=== PATIENT | male | born 1970 | race Caucasian/White ===

== ENCOUNTER 2022-04-01 16:29 | Inpatient (IN) | payer SELFPAY ==
[~2022-04-01] VITALS: Ht 188 cm; Wt 131.6 kg
[2022-04-01 19:41] LABS: BASO # 0.1 K/mm3 (0.0-0.2); BASO % 0.6 % (0.0-2.0); EOS # 0.2 K/mm3 (0.0-0.7); EOS % 2.8 % (0.0-4.0); GRAN % 75.5 % (42.2-75.2); HEMATOCRIT 40.4 % (42.0-52.0); HEMOGLOBIN 12.9 g/dl (13.5-18.0); LYMPH # 1.1 K/mm3 (1.2-3.4); LYMPH % 14.2 % (20.0-51.0); MEAN CELL VOLUME 90 fl (80.0-100.0); MEAN CORPUSCULAR HEMOGLOBIN 29 pg (27-31); MEAN CORPUSCULAR HGB CONC 32 g/dl (33.0-37.0); MEAN PLATELET VOLUME 8.5 fl (7.4-10.4); MONO # 0.5 K/mm3 (0.1-0.6); MONO % 6.5 % (1.7-9.3); PLATELET COUNT 367 K/mm3 (130-400); REDCELL DISTRIBUTION WIDTH-CV 13.5 % (11.5-14.5)
[2022-04-01 19:59] LABS: ALBUMIN 3.3 gm/dL (3.5-5.0); BILIRUBIN,TOTAL 0.3 mg/dL (0.2-1.2); C-REACTIVE PROTEIN 11.07 mg/dL (0.00-0.50); CALCIUM 9.3 mg/dL (8.4-10.2); CREATININE, serum 1.16 mg/dL (0.72-1.25); POTASSIUM 4.2 mmol/L (3.5-4.5); TOTAL PROTEIN 8.2 gm/dL (6.2-8.1)
[2022-04-01 20:05] LABS: ERYTHROCYTE SEDIMENTATION RATE 107 mm/hr (0-15)
[2022-04-01] MEDS ORDERED: PRINZIDE 25 MG-1 TAB PO (22:43)
[2022-04-01] MEDS ORDERED: FLOMAX 0.40.4 MG/CAP PO (22:43)
[2022-04-01] MEDS ORDERED: ADVIL200 MG PO (22:44)
[2022-04-02] VITALS (7 sets, daily range): BP systolic 110–128; BP diastolic 58–72; PULSE 72–89; TEMP 97.8–98.6
[2022-04-02 00:29] LABS: SQUAMOUS EPITHELIAL 0-2 /hpf (0-10); URINE BACTERIA None Seen /hpf (NONE SEEN); URINE RBC 0-2 /hpf (0-2)
[2022-04-02 00:31] LABS: URINE APPEARANCE Clear (CLEAR/HAZY); URINE BLOOD Negative (NEGATIVE); URINE COLOR Yellow (YELLOW); URINE GLUCOSE Negative (NEGATIVE); URINE KETONE Negative (NEGATIVE); URINE NITRATE Negative (NEGATIVE); URINE PROTEIN(semi-quant) 2+ (NEGATIVE); URINE UROBILINOGEN 0.2 E.U/dL (0.2-1.0)
[2022-04-02 00:38] LABS: COLLECTION METHOD CLEAN CATCH
--- NOTE | 2022-04-02 02:30 | NUR ---
PT BROUGHT TO ROOM FROM ED. A&OX4 RESTING IN BED. VSS AND TELE IN PLACE. ADMISSION ASSESSMENT COMPLETE. PT DENIES PN. WOUNDS PRESENT TO BILATERAL FEET W DRAINAGE AND FOUL SMELL. 4TH TOE ON BOTH FEET AMPUTATED. PT DENIES PN. NS AND VANC INFUSING IN RT AC. NO NEEDS AT THIS TIME. CALL LIGHT WITHIN REACH.
--- NOTE | 2022-04-02 04:39 | NUR ---
51 yo male admitted for further care and management of sepsis likely secondary to a bilateral lower extremity skin/soft tissue infection with concern for possible osteomyelitis (past history of MRSA). ht 187.96 cm wt 127.3 kg SCr 1.16 with estimated CrCl >60 ml/min half life 14.1 hours Plan: Will give an initial loading dose of vancomycin 2500 mg x1 (19.6 mg/kg); followed by a maintenance regimen of vancomycin 1750 mg q12h to target a goal trough of 15-20 mcg/ml. Will folllow patient's renal function, micro data, and vancomycin levels as indicated to assess for any necessary changes to regimen. Thank you for this dosing consult.
[2022-04-02 07:15] LABS: BASO % 0.8 % (0.0-2.0); EOS # 0.2 K/mm3 (0.0-0.7); EOS % 3.3 % (0.0-4.0); GRAN # 3.3 K/mm3 (1.4-6.5); GRAN % 64.4 % (42.2-75.2); HEMOGLOBIN 12.1 g/dl (13.5-18.0); LYMPH # 1.2 K/mm3 (1.2-3.4); LYMPH % 23.7 % (20.0-51.0); MEAN CELL VOLUME 90 fl (80.0-100.0); MEAN CORPUSCULAR HEMOGLOBIN 30 pg (27-31); MEAN CORPUSCULAR HGB CONC 33 g/dl (33.0-37.0); MEAN PLATELET VOLUME 8.7 fl (7.4-10.4); MONO # 0.4 K/mm3 (0.1-0.6); MONO % 7.4 % (1.7-9.3); PLATELET COUNT 326 K/mm3 (130-400); REDCELL DISTRIBUTION WIDTH-CV 13.6 % (11.5-14.5)
[2022-04-02 07:23] LABS: ALBUMIN 2.7 gm/dL (3.5-5.0); BILIRUBIN,TOTAL 0.2 mg/dL (0.2-1.2); CALCIUM 8.4 mg/dL (8.4-10.2); CREATININE, serum 1.03 mg/dL (0.72-1.25); POTASSIUM 3.7 mmol/L (3.5-4.5); TOTAL PROTEIN 6.6 gm/dL (6.2-8.1)
--- NOTE | 2022-04-02 08:58 | NUR ---
PT IN CHAIR UPON ASSESSMENT. NO COMPLAINTS AT THIS TIME. PT EDUCATED ON NPO STATUS FOR NOW, CONFIRMED WITH PROVIDER IN CASE OF SURGICAL INTERVENTION FOR WOUNDS TODAY. PT UP AD CYNTHIA WITH PT THIS MORNING
--- NOTE | 2022-04-02 09:03 | NUR ---
Initial visit from doorway, patient in Isolation. Relay Record Clerk wished patient well and offered God's blessings. Patient appeared somewhat discouraged with being hospitalized and spoke only a few words. He did thank Relay Record Clerk for stopping.
[2022-04-02 11:04] LABS: PARTIAL THROMBOPLASTIN TIME 35.6 SECONDS (26.0-37.0)
--- NOTE | 2022-04-02 21:30 | NUR ---
PT IN BED. AWAKENS TO NAME. IS ORIENTED X4. PT REPORTS HIS FOOT DRESSINGS HAVEN'T BEEN CHANGED, REPORTS HE CLEANS HIS WOUNDS TID AT HOME. REMOVED DRSGS AT THIS TIME. CLEANSED OPEN ULCERS TO RT AND LEFT FEET. PLACED SALINE SOAKED GAUZE TO THE THREE ULCERS ON RT FOOT AND COVERED WITH TELFA AND KERLIX. CLEANSED LEFT FOOT ULCER AND PLACED TELFA PAD AND SECURED WITH KERLIX. PTS RT FOOT ULCERS ARE VERY ODIFEROUS, DRSGS WERE SATURATED PRIOR TO CHANGING. IV ANTIBIOTICS INFUSING TO RAC SITE WITHOUT REDNESS OR SWELLING. HAS BLE EDEMA WITH DISCOLORATION. DENIES PAIN AT THIS TIME.
[2022-04-03] VITALS (7 sets, daily range): BP systolic 112–130; BP diastolic 61–73; PULSE 69–83; TEMP 97.6–98.4
--- NOTE | 2022-04-03 04:00 | NUR ---
PT NOT SCORING ON DETOX PROTOCOL. INT TO RAC WITHOUT REDNESS OR SWELLING.
[2022-04-03 06:16] LABS: BASO % 0.6 % (0.0-2.0); EOS # 0.2 K/mm3 (0.0-0.7); EOS % 2.7 % (0.0-4.0); GRAN # 4.4 K/mm3 (1.4-6.5); GRAN % 69.9 % (42.2-75.2); HEMOGLOBIN 11.8 g/dl (13.5-18.0); LYMPH # 1.3 K/mm3 (1.2-3.4); LYMPH % 20.4 % (20.0-51.0); MEAN CELL VOLUME 93 fl (80.0-100.0); MEAN CORPUSCULAR HEMOGLOBIN 30 pg (27-31); MEAN CORPUSCULAR HGB CONC 32 g/dl (33.0-37.0); MEAN PLATELET VOLUME 8.7 fl (7.4-10.4); MONO # 0.4 K/mm3 (0.1-0.6); MONO % 5.9 % (1.7-9.3); PLATELET COUNT 317 K/mm3 (130-400); RED BLOOD COUNT 3.97 M/mm3 (4.20-5.60); REDCELL DISTRIBUTION WIDTH-CV 13.7 % (11.5-14.5)
[2022-04-03 06:38] LABS: CALCIUM 8.7 mg/dL (8.4-10.2); CREATININE, serum 0.98 mg/dL (0.72-1.25); MAGNESIUM 1.9 mg/dL (1.6-2.6); POTASSIUM 3.6 mmol/L (3.5-4.5)
[2022-04-03 06:48] LABS: HEMATOCRIT 36.8 % (42.0-52.0)
--- NOTE | 2022-04-03 09:17 | NUR ---
PT EATING BREAKFAST UPON ASSESSMENT. STATES LAST BM YESTERDAY 04/02. BILAT FEET DRESSINGS CLEAN, DRY AND INTACT AT THIS TIME. PT STATES HE WILL SHOWER LATER THIS MORNING, PLAN TO CHANGE DRESSINGS AFTER SHOWER AND CLEANSING. TELE IN PLACE. NO COMPLAINTS AT THIS TIME.
--- NOTE | 2022-04-03 10:09 | NUR ---
SPOKE VIA TELEPHONE CALL TO DR. MONIQUE WITH [facility] REGARDING PLAN OF CARE FOR THIS PT. PROVIDER EXPRESSED PLAN TO START ORAL DOXYCYCLINE 100MG BID X10 DAYS AND KEFLEX 500MG Q6H X10 DAYS FOR OUTPT ANTIBIOTIC REGIMEN. WILL COMMUNICATE PLANS WITH HOSPITALIST PROVIDER TO PROGRESS CARE TO POTENTIAL DISCHARGE IF DEEMED APPROPRIATE TODAY.
[2022-04-03] MEDS ORDERED: CEPHALEXIN500 M1 PO (11:45)
[2022-04-03] MEDS ORDERED: LIPITOR20 MG PO (11:45)
[2022-04-03] MEDS ORDERED: ASPIRIN 81M81 MG/TA2 PO (11:45)
[2022-04-03] MEDS ORDERED: DOXYCYCLINE 10100 MG PO (11:46)
--- NOTE | 2022-04-03 11:52 | NUR ---
SW provided pt with PCP & [facility] information and sent over referral to [facility].
== END 2022-04-03 13:46 | disposition home or self-care (01) | DRG 603 ==
LOC: COL.ER 16:29 → SURG 20:55
PROVIDERS: Emergency Medicine; Hospitalist; Nurse Practitioner Family; ADMIT Internal Medicine
DX: L03.116 Cellulitis of left lower limb (principal); L03.115 Cellulitis of right lower limb; F17.210 Nicotine dependence, cigarettes, uncomplicated; I87.2 Venous insufficiency (chronic) (peripheral); N40.0 Benign prostatic hyperplasia without lower urinary tract symptoms; I73.9 Peripheral vascular disease, unspecified; D64.9 Anemia, unspecified; I12.9 Hypertensive chronic kidney disease with stage 1 through stage 4 chronic kidney disease, or unspecified chronic kidney disease; N18.2 Chronic kidney disease, stage 2 (mild); Z89.422 Acquired absence of other left toe(s); Z72.89 Other problems related to lifestyle; Z89.421 Acquired absence of other right toe(s); Z86.14 Personal history of Methicillin resistant Staphylococcus aureus infection
CPT/HCPCS: J1650; J2543; J3370; J7030; J7040; J7050